=== PATIENT | female | born 1990 | race Caucasian/White ===

== ENCOUNTER 2022-04-25 10:44 | Inpatient (IN) | payer OTHER ==
[2022-04-25] MEDS: ELECTROLYTE-148 SOLN 1,000 ML IV SCH (12:30)
[2022-04-25 12:47] LABS: BASO % 0.4 % (0-2.0); EOS % 0.6 % (0-4.5); HEMATOCRIT 35.3 % (32.4-45.2); HEMOGLOBIN 11.7 GM/dL (10.7-15.3); LYMPH % 27.4 % (8-40); MCH 28.4 pg (25.7-33.7); MEAN CELL VOLUME 85.9 fl (80-96); MONO % 6.6 % (3.8-10.2); PLATELET COUNT 228 10^3/uL (134-434); RBC 4.11 M/mm3 (3.60-5.2); RDW 15.8 % (11.6-15.6); RETICULOCYTES 1.31 % (0.5-1.5); WHITE BLOOD COUNT 8.6 K/mm3 (4.0-10.0)
[2022-04-25 12:53] LABS: INR 0.98 (0.83-1.09); PROTHROMBIN TIME (PATIENT) 11.4 SEC (9.7-13.0)
[2022-04-25 12:56] LABS: ACTIVATED PTT 29.1 SECONDS (25.2-36.5)
[2022-04-25 13:09] VITALS: BMI 35.5
[2022-04-25 13:48] LABS: EPI CELLS 15 /uL (0-25.1); HYALINE CASTS 5 /uL (0-3.1); PH,URINE 6.5 (5.0-8.0); URINE APPEARANCE CLEAR; URINE BACTERIA 707 /uL (0-1359); URINE BILIRUBIN NEGATIVE (NEGATIVE); URINE COLOR YELLOW; URINE GLUCOSE (UA) NEGATIVE (NEGATIVE); URINE KETONE NEGATIVE (NEGATIVE); URINE LEUK ESTERASE NEGATIVE (NEGATIVE); URINE NITRITE NEGATIVE (NEGATIVE); URINE PROTEIN 3+ (NEGATIVE); URINE RBC 12 /uL (0-23.9)
[2022-04-25] MEDS ORDERED: DINOPROSTONE 10 MG VAGINAL SUPPOSITORY VG STA (13:56)
[2022-04-25 14:24] LABS: CALCIUM 9.5 mg/dL (8.5-10.1)
[2022-04-25 14:27] LABS: URIC ACID 5.6 mg/dL (2.6-7.2)
[2022-04-25 14:28] LABS: CREATININE 0.7 mg/dL (0.55-1.3)
[2022-04-25 14:29] LABS: ALBUMIN 2.6 g/dl (3.4-5.0); BILIRUBIN,TOTAL 0.5 mg/dL (0.2-1); TOT PROT 6.7 g/dl (6.4-8.2)
[2022-04-25] MEDS ORDERED: LABETALOL HCL 100 MG TABLET (FP) ONE ×2 (16:30→22:02)
[2022-04-25] MEDS: LABETALOL HCL 200 MG TABLET (FP) PO SCH ×2 (16:40→22:05)
[2022-04-25] MEDS ORDERED: BUTORPHANOL TARTRATE 1 MG/ML VIAL IVPB ONE (20:21)
[2022-04-25] MEDS ORDERED: PROMETHAZINE HCL 25 MG/1 ML VIAL IVPB ONE (20:21)
[2022-04-25] MEDS ORDERED: PROMETHAZINE HCL 25 MG/1 ML VIAL IVPB PRN (20:21)
[2022-04-25] MEDS ORDERED: LABETALOL HCL 20 MG/4 ML VIAL ONE (20:29)
[2022-04-26] MEDS ORDERED: LABETALOL HCL 100 MG TABLET (FP) ONE ×2 (08:21→21:29)
[2022-04-26] MEDS: LABETALOL HCL 200 MG TABLET (FP) PO SCH ×4 (08:25→21:45)
[2022-04-26] MEDS ORDERED: NIFEdipine 10 MG CAPSULE (FP) ONE (08:48)
[2022-04-26] MEDS ORDERED: NIFEdipine 10 MG CAPSULE (FP) PO ONE (09:00)
[2022-04-26 09:32] LABS: BASO % 0.4 % (0-2.0); EOS % 0.4 % (0-4.5); HEMATOCRIT 33.5 % (32.4-45.2); HEMOGLOBIN 11.2 GM/dL (10.7-15.3); LYMPH % 21.4 % (8-40); MCH 28.6 pg (25.7-33.7); MCHC 33.4 g/dl (32.0-36.0); MEAN CELL VOLUME 85.6 fl (80-96); MEAN PLT VOLUME 9.4 fl (7.5-11.1); MONO % 5.9 % (3.8-10.2); NEUT % 71.9 % (42.8-82.8); PLATELET COUNT 210 10^3/uL (134-434); RBC 3.92 M/mm3 (3.60-5.2); WHITE BLOOD COUNT 9.2 K/mm3 (4.0-10.0)
[2022-04-26 09:50] LABS: CALCIUM 8.7 mg/dL (8.5-10.1)
[2022-04-26 09:51] LABS: ALBUMIN 2.3 g/dl (3.4-5.0); BLOOD UREA NITROGEN 12.6 mg/dL (7-18)
[2022-04-26 09:54] LABS: CREATININE 0.7 mg/dL (0.55-1.3)
[2022-04-26 09:56] LABS: BILIRUBIN,TOTAL 0.3 mg/dL (0.2-1); TOT PROT 6.2 g/dl (6.4-8.2)
[2022-04-26] MEDS ORDERED: OXYTOCIN 30 UNITS in 0.9% NS 30 UNIT/500 ML INFUS.BAG IVPB ONE (10:26)
[2022-04-26] MEDS ORDERED: PROMETHAZINE HCL 25 MG/1 ML VIAL IVPB ONE (10:34)
[2022-04-26] MEDS ORDERED: BUTORPHANOL TARTRATE 1 MG/ML VIAL IVPB ONE ×2 (10:34→14:26)
[2022-04-26] MEDS ORDERED: OXYTOCIN 30 UNITS in 0.9% NS 30 UNIT/500 ML INFUS.BAG IVPB SCH (10:45)
[2022-04-26] MEDS: ELECTROLYTE-148 SOLN 1,000 ML IV SCH (14:00)
[2022-04-26] MEDS ORDERED: MAGNESIUM SULFATE 20GM/500ML - 20 GM/500 ML INFUS.BAG ONE (14:14)
[2022-04-26] MEDS ORDERED: MAGNESIUM 4GM/H20 - 4 GM/100 ML IVPB IVPB ONE (14:14)
[2022-04-26] MEDS ORDERED: MAGNESIUM 4GM/H20 - 4 GM/100 ML IVPB IVPB SCH (14:30)
[2022-04-26] MEDS: MAGNESIUM SULFATE 20GM/500ML - 20 GM/500 ML INFUS.BAG IV SCH (14:45)
[2022-04-26] MEDS ORDERED: morphine SULFATE (PF) 1 MG/2 ML SYRINGE ONE (16:38)
[2022-04-26] MEDS ORDERED: OXYTOCIN 20 UNITS in 0.9% NS 20 UNIT/1,000 ML INFUS.BAG IV ONE ×2 (16:38→21:57)
[2022-04-26] MEDS ORDERED: FENTANYL CITRATE/PF 50 MCG/ML VIAL ONE (16:38)
[2022-04-26] MEDS ORDERED: SUCCINYLCHOLINE CHLORIDE 200 MG/10 ML SYRINGE ONE (16:38)
[2022-04-26] MEDS ORDERED: PHENYLEPHRINE HCL 10 MG/1 ML SINGLE DOSE VIAL ONE (16:38)
[2022-04-26] MEDS ORDERED: ePHEDrine SULFATE 50 MG/1 ML AMPULE ONE ×2 (16:39→16:42)
[2022-04-26] MEDS ORDERED: PROPOFOL 20 ML ONE (16:42)
[2022-04-26] MEDS ORDERED: ROCURONIUM BROMIDE 50 MG/5 ML VIAL ONE (16:43)
[2022-04-26] MEDS ORDERED: SODIUM CHLORIDE 0.9% P/F 10 ML VIAL IJ ONE (16:47)
[2022-04-26] MEDS ORDERED: ceFAZolin SODIUM 1 GM VIAL ONE (16:47)
[2022-04-26] MEDS ORDERED: ONDANSETRON 4 MG/2 ML VIAL ONE (17:25)
[2022-04-26] MEDS ORDERED: KETOROLAC TROMETHAMINE 30 MG/1 ML VIAL ONE (17:25)
[2022-04-26] MEDS ORDERED: IBUPROFEN 800 MG/8 ML IJ IVPB PRN (17:43)
[2022-04-26] MEDS ORDERED: METHYLERGONOVINE MALEATE 0.2 MG/1 ML AMP IM PRN (17:43)
[2022-04-26] MEDS ORDERED: ACETAMINOPHEN 325 MG TABLET (FP) PO PRN (17:43)
[2022-04-26] MEDS ORDERED: WITCH HAZEL 50% (TUCKS) 40 PAD/JAR PAD TP PRN (17:43)
[2022-04-26] MEDS ORDERED: CITRIC ACID/SODIUM CITRATE 30 ML UNIT-DOSE CUP PO ONE (17:44)
[2022-04-26] MEDS ORDERED: ONDANSETRON 4 MG/2 ML VIAL IVPUSH PRN (17:54)
[2022-04-26] MEDS ORDERED: morphine SULFATE/PF 1 MG/2 ML (2cc Syringe - QUVA) IT ONE (17:54)
[2022-04-26] MEDS ORDERED: ACETAMINOPHEN 1000 MG/100 ML BAG IVPB PRN (17:55)
[2022-04-26] MEDS: OXYTOCIN 20 UNITS in 0.9% NS 20 UNIT/1,000 ML INFUS.BAG IV SCH (19:00)
[2022-04-26] MEDS: FERROUS SO4 325 MG TABLET (FP) PO SCH (22:29)
[2022-04-27] MEDS ORDERED: MAGNESIUM SULFATE 20GM/500ML - 20 GM/500 ML INFUS.BAG ONE (00:45)
[2022-04-27] MEDS: MAGNESIUM SULFATE 20GM/500ML - 20 GM/500 ML INFUS.BAG IV SCH (03:00)
[2022-04-27] MEDS: OXYTOCIN 20 UNITS in 0.9% NS 20 UNIT/1,000 ML INFUS.BAG IV SCH (03:40)
[2022-04-27 06:39] LABS: MAGNESIUM 5.7 mg/dL (1.8-2.4)
[2022-04-27 06:44] LABS: BASO % 0.3 % (0-2.0); EOS % 0.3 % (0-4.5); HEMATOCRIT 30.1 % (32.4-45.2); HEMOGLOBIN 10.2 GM/dL (10.7-15.3); LYMPH % 16.3 % (8-40); MCHC 33.9 g/dl (32.0-36.0); MEAN CELL VOLUME 85.6 fl (80-96); MEAN PLT VOLUME 9.4 fl (7.5-11.1); MONO % 6.5 % (3.8-10.2); NEUT % 76.6 % (42.8-82.8); PLATELET COUNT 199 10^3/uL (134-434); RBC 3.51 M/mm3 (3.60-5.2); WHITE BLOOD COUNT 9.7 K/mm3 (4.0-10.0)
[2022-04-27] MEDS ORDERED: OXYTOCIN 20 UNITS in 0.9% NS 20 UNIT/1,000 ML INFUS.BAG IV ONE (08:59)
[2022-04-27] MEDS: FERROUS SO4 325 MG TABLET (FP) PO SCH ×2 (10:18→22:40)
[2022-04-27] MEDS: PRENATAL VITAMINS W/ FOLIC ACID TABLET (FP) PO SCH (10:19)
[2022-04-27] MEDS: LABETALOL HCL 200 MG TABLET (FP) PO SCH ×2 (10:54→22:46)
[2022-04-27 17:14] VITALS: RESP 18
[2022-04-27] MEDS ORDERED: BISACODYL 10 MG SUPP.RECT RC PRN (17:43)
[2022-04-27] MEDS: SIMETHICONE 80 MG TAB.CHEW (FP) PO PRN ×2 (18:16→22:40)
[2022-04-27] MEDS: IBUPROFEN 600 MG TABLET (FP) PO PRN ×2 (18:16→22:40)
[2022-04-28] MEDS: PRENATAL VITAMINS W/ FOLIC ACID TABLET (FP) PO SCH (10:48)
[2022-04-28] MEDS: LABETALOL HCL 200 MG TABLET (FP) PO SCH (10:48)
[2022-04-28] MEDS: FERROUS SO4 325 MG TABLET (FP) PO SCH ×2 (10:48→22:00)
[2022-04-28] MEDS: IBUPROFEN 600 MG TABLET (FP) PO PRN ×2 (10:49→18:36)
[2022-04-28] MEDS: SIMETHICONE 80 MG TAB.CHEW (FP) PO PRN ×2 (10:50→18:36)
[2022-04-28] MEDS: oxyCODONE HCL 5 MG TABLET PO PRN (19:41)
[2022-04-28] MEDS: NIFEdipine E.R. 30 MG TABLET PO SCH (19:41)
[2022-04-28] MEDS: LABETALOL HCL 100 MG TABLET (FP) PO SCH (22:00)
[2022-04-29 07:14] LABS: BASO % 0.2 % (0-2.0); EOS % 1.4 % (0-4.5); HEMATOCRIT 27.4 % (32.4-45.2); HEMOGLOBIN 9.4 GM/dL (10.7-15.3); MCH 29.5 pg (25.7-33.7); MCHC 34.1 g/dl (32.0-36.0); MEAN CELL VOLUME 86.6 fl (80-96); MEAN PLT VOLUME 8.9 fl (7.5-11.1); NEUT % 69.4 % (42.8-82.8); PLATELET COUNT 229 10^3/uL (134-434); RBC 3.17 M/mm3 (3.60-5.2); RDW 16.5 % (11.6-15.6); WHITE BLOOD COUNT 10.3 K/mm3 (4.0-10.0)
[2022-04-29] MEDS: NIFEdipine E.R. 30 MG TABLET PO SCH (10:43)
[2022-04-29] MEDS: LABETALOL HCL 100 MG TABLET (FP) PO SCH ×2 (10:43→22:16)
[2022-04-29] MEDS: FERROUS SO4 325 MG TABLET (FP) PO SCH ×2 (10:43→22:17)
[2022-04-29] MEDS: PRENATAL VITAMINS W/ FOLIC ACID TABLET (FP) PO SCH (10:43)
[2022-04-29] MEDS: IBUPROFEN 600 MG TABLET (FP) PO PRN ×2 (10:44→17:14)
[2022-04-29] MEDS: SIMETHICONE 80 MG TAB.CHEW (FP) PO PRN ×3 (10:44→20:45)
[2022-04-29] MEDS: oxyCODONE HCL 5 MG TABLET PO PRN (20:45)
[2022-04-30] MEDS: IBUPROFEN 600 MG TABLET (FP) PO PRN (08:18)
[2022-04-30] MEDS: SIMETHICONE 80 MG TAB.CHEW (FP) PO PRN (08:20)
[2022-04-30 10:22] VITALS: TEMP 98.1
[2022-04-30] MEDS: LABETALOL HCL 100 MG TABLET (FP) PO SCH (10:30)
[2022-04-30] MEDS: FERROUS SO4 325 MG TABLET (FP) PO SCH (10:30)
[2022-04-30] MEDS: PRENATAL VITAMINS W/ FOLIC ACID TABLET (FP) PO SCH (10:30)
[2022-04-30 11:25] VITALS: BP 121/83; PULSE 78
[2022-04-30] MEDS: NIFEdipine E.R. 30 MG TABLET PO SCH (11:26)
== END 2022-04-30 12:30 | disposition home or self-care (01) | DRG 540 ==
LOC: JDEL 10:44 → JLDR 11:15 → J3W 04-27 09:10
PROVIDERS: ADMIT Student in an Organized Health Care Education/Training Program; ATTEND Student in an Organized Health Care Education/Training Program
PROC: 3E0P7VZ Introduction of Hormone into Female Reproductive, Via Natural or Artificial Opening (ICD-10-PCS; 2022-04-25)
PROC: 10D00Z1 Extraction of Products of Conception, Low, Open Approach (ICD-10-PCS; principal; 2022-04-26)
DX: O14.14 Severe pre-eclampsia complicating childbirth (principal); O61.0 Failed medical induction of labor; O24.425 Gestational diabetes mellitus in childbirth, controlled by oral hypoglycemic drugs; Z3A.38 38 weeks gestation of pregnancy; Z37.0 Single live birth
CPT/HCPCS: 36415; 80053; 81003; 82570; 82962; 82977; 83010; 83735; 84156; 84550; 85025; 85045; 85610; 85730; 86780; 86850; 86900; 86901; 88307-TC; C9803-CS; U0003; U0005